=== PATIENT | female | born 1960 | race American Indian/Alaskan Native ===

== ENCOUNTER 2021-10-14 13:21 | Emergency (ER) | payer OTHER ==
--- NOTE | 2021-10-14 14:40 | Event Note ---
ED Screening Note ED Screening Note: 61 y/o female with history of HTN (misses doses time to time just got new script yesterday) and anemia c/o dizziness, tinnitius and "feeling off" the last few days. Denies any pain This initial assessment/diagnostic orders/clinical plan/treatment(s) is/are subject to change based on patients health status, clinical progression and re- assessment by fellow clinical providers in the ED. Further treatment and workup at subsequent clinical providers discretion. Patient/guardian urged not to elope from the ED as their condition may be serious if not clinically assessed and managed. Initial orders include: Labs, EKG, Clonidine
[2021-10-14] MEDS ORDERED: cloNIDine 0.2 MG TAB PO STA (14:43)
[2021-10-14 15:01] LABS: Eosinophils # (Auto) 0.4 K/mm3 (0.0-0.4); Eosinophils % (Auto) 10.7 % (0.0-4.3); Hematocrit 30.5 % (30.3-42.9); Hemoglobin 9.6 gm/dl (10.1-14.3); Lymphocytes # (Auto) 0.5 K/mm3 (1.2-5.4); Lymphocytes % (Auto) 13.8 % (13.4-35.0); Mean Corpuscular HGB Conc 32 % (30-34); Mean Corpuscular Volume 72 fl (79-97); Monocytes # (Auto) 0.4 K/mm3 (0.0-0.8); Monocytes % (Auto) 11.6 % (0.0-7.3); Platelet Count 227 K/mm3 (140-440); Red Blood Count 4.26 M/mm3 (3.65-5.03)
[2021-10-14 15:22] LABS: Alanine Aminotransferase 6 units/L (7-56); Albumin 4.4 g/dL (3.9-5); BUN/Creatinine Ratio 11; Blood Urea Nitrogen 9 mg/dL (7-17); Calcium 10.2 mg/dL (8.4-10.2); Hemolysis Index 4
--- NOTE | 2021-10-14 15:35 | XRay Report ---
CHEST 2 VIEWS INDICATION / CLINICAL INFORMATION: Lightheadedness/Dizziness. COMPARISON: None available. FINDINGS: SUPPORT DEVICES: None. HEART / MEDIASTINUM: The heart is mildly enlarged with a left ventricular configuration. Pulmonary va sculature is normal. There is mild aortic tortuosity without aneurysm. LUNGS / PLEURA: No significant pulmonary or pleural abnormality. No pneumothorax. ADDITIONAL FINDINGS: No significant additional findings. IMPRESSION: No acute findings. Signer Name: Austen Santiago MD Signed: 10/14/2021 3:31 PM Workstation Name: [id number]
[2021-10-14 16:10] LABS: Red Cell Distribution Width 24.3 % (13.2-15.2)
[2021-10-14] MEDS ORDERED: cloNIDine 0.1 MG TAB PO ONE (21:31)
--- NOTE | 2021-10-14 22:29 | Emergency Department Report ---
HPI - General Chief Complaint: High BP PUI?: No Time Seen by Provider: 10/14/21 21:09 - HPI HPI: 61-year-old female with a history of hypertension presents for evaluation of hypertension. Patient is asymptomatic. She reports that she took her blood pressure at a local [employer] today and states that her blood pressure was over 2 00 systolic and the diastolic was over 100. She states she called her primary care doctor and was advised to go to an urgent care center. Patient states she went to urgent care center and then was deferred to come to the emergency department for evaluation. She reports she is compliant with her blood pressure medications. No new changes in her blood pressure medication. She states she previously was on a clonidine patch but primary care doctor discontinued this. She denies any symptoms at this time. She denies any chest pain shortness of breath difficulty breathing palpitations vision changes back pain abdominal pain. Remainder of review of systems negative. Pain 0-10. ED Past Medical Hx - Past Medical History Hx Hypertension: Yes ED Review of Systems ROS: Stated complaint: BLOOD PRESSURE HIGH Other details as noted in HPI Comment: All other systems reviewed and negative Constitutional: no symptoms reported. denies: see HPI, chills Eyes: eye pain. denies: as per HPI ENT: ear pain, throat pain Respiratory: see HPI. denies: no symptoms reported, cough, orthopnea Cardiovascular: as per HPI. denies: chest pain, palpitations, dyspnea on exertion, orthopnea, edema, syncope, paroxysmal nocturnal dyspnea, other Endocrine: no symptoms reported Gastrointestinal: denies: abdominal pain, nausea, vomiting, diarrhea, constipation, hematemesis, melena Genitourinary: denies: urgency, dysuria, frequency, hematuria, discharge, abnormal menses, dyspareunia Musculoskeletal: denies: back pain, joint swelling, arthralgia, myalgia, other Skin: denies: rash, lesions, change in color, change in hair/nails, pruritus Neurological: denies: headache, weakness, numbness, paresthesias, confusion, abnormal gait, vertigo Psychiatric: denies: anxiety, depression, auditory hallucinations, visual hallucinations, homicidal thoughts, suicidal thoughts Hematological/Lymphatic: denies: easy bleeding, easy bruising, swollen glands Physical Exam - Physical Exam Vital Signs: Vital Signs 10/14/21 10/14/21 10/14/21 13:25 14:48 21:48 Temperature 97.4 F L Pulse Rate 72 57 L Respiratory 18 Rate Blood Pressure 214/111 178/83 Blood Pressure 214/111 [Left] O2 Sat by Pulse 100 Oximetry 10/14/21 21:50 Temperature Pulse Rate Respiratory Rate Blood Pressure Blood Pressure [Left] O2 Sat by Pulse 100 Oximetry General: Gen: pt is well appearing, no acute distress HEENT: Normocephalic atraumatic pupils equally round and reactive to light extraocular muscles intact sclera anicteric Neck: Full range of motion, no midline spinal tenderness palpation, no JVD, no carotid bruits, no nuchal rigidity CVS: S1-S2 regular rate and rhythm with no gallops rubs or murmurs, chest wall nontender Pulmonary: Clear to auscultation bilaterally, no wheezes rales or rhonchi Abdomen: Soft nondistended nontender no guarding or rebound tenderness, no palpable deformities or step-offs, normal active bowel sounds, no hepatosplenomegaly, no pulsatile masses : Deferred Extremities: No cyanosis no clubbing no edema, intact distal peripheral pulses, Integumentary: Skin normal, no petechia no purpura no abscess no lacerations no evidence of trauma no evidence of infection Neuro: Patient is awake alert and oriented to person place time situation, mentating well, cranial nerves II through XII intact, no focal neurodeficits, sensation grossly tact Psych: Calm cooperative, mood affect normal ED Course Vital Signs 10/14/21 10/14/21 10/14/21 13:25 14:48 21:48 Temperature 97.4 F L Pulse Rate 72 57 L Respiratory 18 Rate Blood Pressure 214/111 178/83 Blood Pressure 214/111 [Left] O2 Sat by Pulse 100 Oximetry 10/14/21 21:50 Temperature Pulse Rate Respiratory Rate Blood Pressure Blood Pressure [Left] O2 Sat by Pulse 100 Oximetry ED Medical Decision Making - Lab Data Result diagrams: 10/14/21 14:44 10/14/21 14:44 - EKG Data -: EKG Interpreted by Me EKG shows normal: sinus rhythm Rate: normal - EKG Data When compared to previous EKG there are: no significant change, previous EKG unavailable 10/14/21 22:28 EKG interpreted by me: Ventricular rate 66 bpm. P waves are present and proceed every QRS complex. Intervals normal except patient has prolonged QT interval measuring [address] segment depressions or elevations. Patient has T wave inversions in V2. No ectopic. No arrhythmia. Normal axis. Sinus rhythm. Left ventricular hypertrophy. No prior EKG available for comparison - Radiology Data Radiology results: report reviewed - Medical Decision Making 61yo F w/hx of HTN presents for evaluation of elevated blood pressure readings here vital signs stable. Patient but have been given clonidine in triage. Upon arrival to the emergency department room during my time of evaluation, esteban alvarado's blood pressure had improved but remains elevated.Pt given clonidine again and this resulted in significant improvement in her blood pressure. Labs grossly unremarkable. Patient encouraged to purchase a blood pressure cuff at home to be able to obtain serial blood pressure readings at home so that she may take them to her primary care doctor for evaluation and proceed with further management of her blood pressure. Patient is stable for discharge to home. No further emergent work-up warranted. Prior to discharge she was given strict verbal and written return precautions. Patient verbalized understanding and agreement the plan of care. Critical care attestation.: If time is entered above; I have spent that time in minutes in the direct care of this critically ill patient, excluding procedure time. ED Disposition Clinical Impression: Hypertension Disposition: HOME / SELF CARE / HOMELESS Is pt being admited?: No Does the pt Need Aspirin: No Condition: Stable Instructions: Hypertension, Adult, [id number], Hypertension (ED) Additional Instructions: Your blood work today was normal. Please contact your primary care doctor in 1 business day, which is Saturday, October 16, 2021, to schedule an immediate follow-up appointment for reassessment. It is recommended that you obtain a blood pressure cuff monitor so that you may monitor your blood pressure readings at home carefully. Continue to avoid any caffeinated products, any energy drinks, and any other substances which can trigger elevated blood pressure readings. Additionally it is recommended that you reduce any stress you may be experiencing so much as possible. Return to the nearest emergency department soon as possible if you develop chest pain, shortness of breath, difficulty breathing, palpitations, lightheadedness or dizziness, or if any other new worrisome symptoms develop. Referrals: CHRISTINA ROE MD [Primary Care Provider] - 3-5 Days Forms: Work/School Release Form(ED)
[2021-10-14 22:44] VITALS: BP 177/82
--- NOTE | 2021-10-16 10:00 | Electrocardiograph Report ---
[facility] Test Date: 2021-10-14 Test Time: 14:57:29 Pat Name: FLORI VALDIVIA Department: Room: Gender: F [employer] Architect: ADÁN : 1960 Requested By: DEAN OSHEA Order Number: [id number] Reading MD: Dain Cook Measurements Intervals Lequire Rate: 66 P: 61 MN: 195 QRS: -5 QRSD: 90 T: 66 QT: 479 QTc: 504 Interpretive Statements Sinus rhythm Left atrial enlargement Left ventricular hypertrophy Anterior Q waves, possibly due to LVH Nonspecific T abnormalities, lateral leads Prolonged QT interval No previous ECG available for comparison Electronically Signed On 10-16-2021 9:59:57 EDT by Dain Cook
== END 2021-10-14 22:45 | disposition home or self-care (01) ==
LOC: ED 13:21
DX: I10 Essential (primary) hypertension (principal)
CPT/HCPCS: 36415; 71046; 80053; 85025; 93005; 99284